=== PATIENT | female | born 1955 | race Caucasian/White ===

== ENCOUNTER 2024-02-22 10:55 | Emergency (ER) | payer MEDICARE, OTHER, SELFPAY ==
[2024-02-22 11:00] VITALS: BP 161/76
--- NOTE | 2024-02-22 12:54 | ED.GENMED ---
History of Present Illness
General
Chief Complaint: DVT/Possible Blood Clot
Source: patient
Time Seen by Provider: 02/22/24 12:39
Travel History
Have you had any contact with someone who has COVID-19?: No
Do you have any symptoms of coronavirus? Fever > 100 degrees, chills, cough, shortness of breath, sore throat, loss of taste or smell, muscle aches, or headache?: No
History of Present Illness
History of Present Illness:
68-year-old female presents with pain to the right calf and posterior aspect of the knee starting several days ago. No associated chest pain or shortness of breath. No known injury. No other complaints at this time
Phy Exam
Physical Exam
Physical Exam:
General: Well-appearing female no acute respiratory distress
HEENT: Normocephalic atraumatic
Musculoskeletal exam: Right lower leg with edema. There is swelling around the knee as well. The calf is mildly painful and tender to the touch posteriorly. Good range of motion right knee and ankle
Skin is warm no erythema or rash
Vascular 2+ dorsalis pedis pulse as well as posterior tibialis pulse right foot
Neurologic: Good sensation right leg
Course
Orders/Labs/Results
Orders:
Orders
02/22/24 11:04
US Periph Venous LOWER Ext RT Urgent
Comment:
Reason For Exam: right calf swelling with pain
Vital Signs
Initial and Last Documented VS:
Initial Vital Signs
Temp Pulse Resp BP Pulse Ox
98.0 F 68 16 161/76 98
02/22/24 11:00 02/22/24 11:00 02/22/24 11:00 02/22/24 11:00 02/22/24 11:00
Last Documented Vital Signs
Temp Pulse Resp BP Pulse Ox
98.0 F 68 16 161/76 98
02/22/24 11:00 02/22/24 11:00 02/22/24 11:00 02/22/24 11:00 02/22/24 11:00
MDM/Problems Addressed
Differential Diagnosis Includes:
Patient sent in by family doctor to evaluate for DVT. Other items to consider would be Araiza's cyst. No infection signs on exam. Do not suspect cellulitis. Ultrasound here was negative. Suspect underlying inflammatory issue recommended
elevation and Tylenol. Stable for discharge with follow-up
*Critical Care Note
Total Time (30-74mins, 75-104mins- exclusive of procedures): Not Applicable
ED Attending Note
-
Portions of this chart may have been created with voice recognition software.� Occasional wrong word or��sound alike� substitutions may have occurred due to the inherent limitations of voice recognition software.
Discharge Plan
Departure
Patient Disposition: Home (Routine Discharge)
Date of Disposition: 02/22/24
Time of Disposition: 12:57
Patient with high blood pressure during this ER visit?: No
Discharge Problem:
Leg swelling
Instructions: Araiza's Cyst (DC)
Activity Restrictions/Additional Instructions:
Elevate for swelling. Use Tylenol if needed for pain peer return if worse otherwise follow-up with your doctor
Interventions
Interventions:
*ED COVID-19 Vaccine History Last Done: 02/22/24 11:00
Discharge Date and Time
Print Language: LIBERIAN
== END 2024-02-22 13:43 | disposition home or self-care (01) ==
LOC: EMR 10:55
PROVIDERS: EMERGENCY PHYSICIAN Emergency Medicine; FAMILY PHYSICIAN Nurse Practitioner Primary Care
DX: R22.41 Localized swelling, mass and lump, right lower limb (principal); M79.89 Other specified soft tissue disorders
CPT/HCPCS: 99284; 93971